=== PATIENT | male | born 1975 | race Caucasian/White ===

== ENCOUNTER 2023-12-11 19:28 | Emergency (ER) | payer MEDICAID, SELFPAY ==
--- NOTE | 2023-12-11 19:30 | XRR_ITS ---
PROCEDURE INFORMATION: Exam: XR Right Shoulder Exam date and time: 12/11/2023 7:43 PM Age: 48 years old Clinical indication: Injury or trauma; Fall; Blunt trauma (contusions or hematomas); Shoulder; Right; Additional info: Pain TECHNIQUE: Imaging protocol: Radiologic exam of the right shoulder. Views: 2 or more views. COMPARISON: No relevant prior studies available. FINDINGS: Bones/joints: Anterior inferior subluxation/partial dislocation of the glenohumeral joint. No fracture. Soft tissues: Normal. XR/XR shoulder RT min 2V* [id number] IMPRESSION: Anterior inferior subluxation/partial dislocation of the right glenohumeral joint.
[2023-12-11 19:33] VITALS: BP 117/78; PULSE 54; RESP 14; TEMP 36.6; O2SAT 98
--- NOTE | 2023-12-11 20:12 | W.ED.EXTPRO ---
HPI - Extremity Problem General: Chief complaint: Extremity Injury, Upper Stated complaint: Shoulder/Upper left arm pain Time Seen by Provider: 12/11/23 19:30 Source: patient Mode of arrival: ambulatory Limitations: no limitations History of Present Illness: 48-year-old male that states that he had fell in his attic went to grab try to catch himself with his right arm and pulled his right arm he states he felt a pop in his right shoulder and has not been able lift his arm since then. He states he dislocated his shoulder before and this feels similar denies any other injuries. Associated symptoms: Deny chest pain, fever(s) or rash Review of Systems Const: Denies: fever(s), chills, body aches or change in appetite ENMT: Denies: throat pain or dental pain Card: Denies: chest pain Resp: Denies: dyspnea GI: Denies: abdominal pain, nausea, vomiting or diarrhea Musc: Reports: extremity pain; Denies: neck pain or back pain Skin/Breast: Denies: rash Physical Exam Const: COMMON NORMALS: no acute distress, patient oriented x3 and healthy appearing HENMT: COMMON NORMALS: normocephalic and atraumatic HEAD & SCALP: normocephalic and atraumatic Eye: COMMON NORMALS: Equal, round and reactive pupils present PUPIL: Yes Equal, round and reactive pupils present Neck/C-Spine: COMMON NORMALS: full ROM and supple Chest: COMMONS NORMALS: normal inspection of the chest Resp: COMMON NORMALS: normal respiratory effort, No retractions, No use of accessory muscles and clear to auscultation bilaterally AUSCULTATION: clear to auscultation bilaterally Extremity: NARRATIVE EXTREMITY EXAM: Exam consistent on the right shoulder dislocation distal pulse sensation intact Neuro: COMMON NORMALS: patient oriented x3, moves all extremities and no focal motor deficits Psych: COMMON NORMALS: mental status grossly normal, Normal thought process present and cooperative THOUGHT PROCESS: Normal thought process present Skin: COMMON NORMALS: no rashes or lesions noted and no wounds GENERAL SKIN EXAM: no rashes or lesions noted Procedures Orthopedic Joint Reduction Joint #1: Time Out Performed: Yes Side: right Joint Reduction Location: shoulder Analgesia: procedural sedation Shoulder Technique Used (if applicable): traction/counter-traction Post-reduction neuro exam: intact Post-reduction vascular: intact Post Reduction X-Ray Obtained: Yes Post Reduction X-Ray Results: reduced Splint Applied: Yes Procedural Sedation Indication: fracture/dislocation reduction ASA Class: I Time of Last PO Intake: 14:00 Preparation: court recording monitor applied and pulse oximeter IV Propofol dose (mg): 100 Patient Tolerated Procedure: well Complications: none Course Vital Signs: Vital signs: Vital Signs Temperature 97.8 F 12/11/23 19:33 Pulse Rate 65 12/11/23 20:14 Respiratory Rate 13 12/11/23 20:14 Blood Pressure 122/83 12/11/23 20:14 Pulse Oximetry 96 12/11/23 20:14 Oxygen Delivery Me thod Room Air 12/11/23 20:14 MDM - Extremity (Nontraumatic) Medical Decision Making Patient presents here with a right dislocated shoulder patient was sedated shoulder was reduced no fracture seen he is in immobilizer we will get him follow-up with orthopedics return if worsening. Medical Records I reviewed the patient's medical records. All radiology interpretation(s) finalized by discharge Discharge Plan Discharge Patient Disposition: Home Clinical Impression: Dislocated shoulder Qualifiers: Encounter type: initial encounter Laterality: right Qualified Code(s): S43.004A - Unspecified dislocation of right shoulder joint, initial encounter Condition: Stable Discharge Orders: Discharge ED (Routine); Ordered 12/11/23 Ordered By: Paras Hays Referrals: Lucy Roldan FNP-C [Primary Care Provider] - Scarlett Ray MD [Physician] - 4-7 days Discharge Diet: Advance as tolerated Discharge Activity: Resume usual activity Patient Instructions: Shoulder Dislocation (ED) Coding Level of Care Code ED [facility] for Juan Ramon Jerry
[2023-12-11 20:14] VITALS: BP 122/83; PULSE 65; RESP 13; O2SAT 96
[2023-12-11] MEDS: propofol 10 mg/mL SDV 20 mL 100 MG IVP (20:16)
--- NOTE | 2023-12-11 20:16 | XRR_ITS ---
PROCEDURE INFORMATION: Exam: XR Right Shoulder Exam date and time: 12/11/2023 8:18 PM Age: 48 years old Clinical indication: Other: Post reduction TECHNIQUE: Imaging protocol: Radiologic exam of the right shoulder. Views: 1 view. COMPARISON: CR XR shoulder RT min 2V* [id number] 12/11/2023 7:43 PM FINDINGS: Bones/joints: The right glenohumeral joint is in normal alignment. No visible fracture. Probable bone island in the right humeral neck. Soft tissues: Normal. XR/XR shoulder RT 1V [id number] IMPRESSION: Reduction of the right glenohumeral joint.
[2023-12-11 20:24] VITALS: BP 111/72; PULSE 70; RESP 16; O2SAT 96
[2023-12-11 20:35] VITALS: BP 120/73; PULSE 77; RESP 18; O2SAT 97
[2023-12-11 20:47] VITALS: BP 117/76; PULSE 69; RESP 18; O2SAT 96
--- NOTE | 2023-12-12 11:44 | DCPLANNER ---
messaged ortho for er f/u
== END 2023-12-11 20:49 | disposition home or self-care (01) ==
PROVIDERS: Emergency Provider Emergency Medicine; Family Provider Nurse Practitioner; PCP Nurse Practitioner
DX: S43.004A Unspecified dislocation of right shoulder joint, initial encounter (principal); W18.30XA Fall on same level, unspecified, initial encounter
CPT/HCPCS: 23650; 29240; 73020; 73030; 99285; J2704